=== PATIENT | male | born 1955 | race Caucasian/White ===

== ENCOUNTER → 2016-11-22 | Emergency (ER) | payer MEDICARE, OTHER ==
[~2016-11-22] MED LIST: ADVIL PO; BACTROCR TOP; CAP25 PO; CAP50 PO; CAPOZIDE PO; CITRACAL PO; DEPAKOT500 PO; DEPAKUDL PO; DITRO5 PO; FERROUS SULF325 M1 PO; FLORASTOR250 MG PO; FOLIC PO; GAS-X80 MG PO; KCL20UDL PO; KDUR20 PO; KEPPRA750 MG PO; KLOR-CON 1010 MEQ PO; L20 PO; L40 PO; MIRALAXPKT PO; NEXIUM40 MG PO; NEXIUM40 PO; PROBOTIC PO; RECLAST IV; SENTAB PO; TEG100B PO; TEG200 PO; TEGRETOL100 MG PO; TINACTIN11 EX; TINACTIN11 TOP; TOPICORT0.05 % TOP; VITAMIN D31000 UNIT PO; Vitamin D3 PO; ZAROX2.5B PO; ZOVI800 PO; [UNRECOGNIZED DRUG - OTHER]
== END | disposition home or self-care (01) ==
LOC: ER 11:09
DX: S00.01XA Abrasion of scalp, initial encounter (principal); W18.30XA Fall on same level, unspecified, initial encounter; G40.909 Epilepsy, unspecified, not intractable, without status epilepticus
CPT/HCPCS: 99284

== ENCOUNTER 2017-01-18 11:59 | Emergency (ER) | payer MEDICARE, OTHER | END 2017-01-18 12:57 | disposition home or self-care (01) | LOC: ER 11:59 | DX: S00.03XA Contusion of scalp, initial encounter (principal); S00.01XA Abrasion of scalp, initial encounter; I10 Essential (primary) hypertension; Z88.8 Allergy status to other drugs, medicaments and biological substances; Z79.899 Other long term (current) drug therapy; W19.XXXA Unspecified fall, initial encounter; Y93.01 Activity, walking, marching and hiking | CPT/HCPCS: 99283 ==